=== PATIENT | male | born 1955 | race Caucasian/White ===

== ENCOUNTER 2018-01-20 22:43 | Inpatient (IN) ==
--- NOTE | 2018-01-21 01:27 | Internal Med History&Physical ---
<Jose Prasad - Last Filed: 01/21/18 02:15> Date of Encounter: 01/21/18 Time of Encounter: 01:27 Internal Medicine - H&P: HPI Chief complaint: Chest pain Admitted From: Hospital to Hospital Transfer Plans for Post Hospital Care: Home History of present illness: Mr. Gillespie is a 62 year old male with past medical history of hypertension presents to emergency room with complaint of chest pain 2 days. He states that he was using chainsaw cut down trees on Saturday when he began to experience gradual onset substernal chest tightness. The pain has been constant since onset and does not wax or wane. He also describes a dull pain without radiation. He states it is nonexertional. He was having some associated diaphoresis, nausea without vomiting during this time. He also complains complaint of chronic diarrhea almost immediately after eating however states is chronic. He states it feels vaguely familiar to when he was diagnosed with myocarditis approximately to 5 years ago. He denies the need for steroids at that time and states that it resolved on its own. He denies any symptoms of fevers, chills, shortness of breath. He does take a home aspirin. 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 He also admits to chronic anxiety with possible increased stressors over the past couple weeks with his son. Denies any history of panic attacks At [facility] emergency department, EKG shows sinus bradycardia with a rate in the high 50s. There were no ST changes appreciated. Troponin was mildly elevated at 0.10. He was started on heparin drip at that time. Chest x-ray was a normal limits. Remainder of labs were grossly unremarkable. At presentation to this facility, patient states pain is still present however not as bad. It was noted that he began to experience bilateral eye swelling while in transport. It is noted that he has an allergy to pork and the heparin was since stopped with improvement of symptoms. Past medical history as above Past surgical history, compression fractures Social history: Never smoker however does admit to chewing tobacco. Drinks approximately 2-3 alcohol drinks per night, denies drug use Family history significant for father with [place] and quadruple bypass at age 56, mother and grandmother with CAD Past cardiac workup: patient reports previous echo, doesn't remember results. LHC following myocarditis. No stents placed. All tests performed at [facility] - H&P: Meds Effexor 75 mg PO HS 01/21/18 [History] Lopressor 50 mg PO DAILY 01/21/18 [History] Lotrel 5-10 mg Capsule 5 - 10 mg PO DAILY 01/21/18 [History] Potassium 10 mg PO DAILY 01/21/18 [History] Spiriva PRN 01/21/18 [History] Vytorin 10-10 mg Tablet 10 mg PO DAILY 01/21/18 [History] 3 Allergy/AdvReac Type Severity Reaction Status Date / Time Sulfa (Sulfonamide Allergy See Verified 01/21/18 01:01 Antibiotics) Comments pork derived (porcine) AdvReac Intermediate [place] Verified 01/21/18 00:59 headache. All Systems PM: A 10-system review of systems was performed and is negative for pertinent findings except as documented above in the HPI. - Constitutional Constitutional: excessive sweating, no anorexia, no chills, no fatigue, no fever (s), no lethargy, no malaise, no weakness - Cardiovascular Cardiovascular ROS IM: chest pain, diaphoresis, no claudication, no dyspnea, no dyspnea on exertion, no edema, no lightheadedness, no orthopnea, no palpitations , no syncope - Respiratory Respiratory: no cough, no dyspnea, no hemoptysis, no dyspnea on exertion - Gastrointestinal Gastrointestinal: diarrhea, loose stools, nausea, no abdominal pain, no cramping , no dyspepsia, no dysphagia, no hematochezia, no melena, no vomiting - Integumentary Integumentary IM: no rash - Neurological Neurological ROS: no dizziness, no focal weakness, no numbness, no tingling, no weakness - Psychiatric Psychiatric: anxiety - Constitutional Vitals: Temp Pulse Resp BP Pulse Ox 97.5 F L 56 15 159/98 96 01/21/18 01:10 01/21/18 01:10 01/21/18 01:10 01/21/18 01:10 01/21/18 01:10 Exam: Gen.: Vitals noted. No acute distress. AAOx3, resting comfortably in bed HEENT: PERRL/EOMI, oropharynx clear, Normocephalic, atraumatic, moist mucous membranes Cardiac: RRR, no murmur, +S1/S2, mildly bradycardic. Nonreproducible chest pain Pulmonary: CTA bilaterally, no wheezes, rales or rhonchi, equal chest expansion Abdomen: soft, nontender, BS noted, no guarding MSK: ROM intact, no joint swelling noted Extremities: no BLE edema, nontender calf, no cyanosis or clubbing Neuro: A&Ox3, moves all extremities, no focal deficits Psych: Appropriate mood and behavior - Assessment and plan (1) NSTEMI (non-ST elevated myocardial infarction) Current Visit: Yes Status: Suspected Assessment and plan: - as above. More likely anxiety however positive trop. (2) Elevated troponin Current Visit: Yes Status: Acute Assessment and plan: Trop of 0.10 as above. Trending. (3) HTN (hypertension) Current Visit: Yes Status: Chronic Assessment and plan: Reports normally in 130s/80s - Mildly elevated at 159/98, possible due to pain vs anxiety - Will continue home meds and add hydralazine as needed. Qualifiers: Hypertension type: essential hypertension Qualified Code(s): I10 - Essential (primary) hypertension (4) DVT prophylaxis Current Visit: Yes Status: Acute Assessment and plan: was previously on heparin gtt, stopped. Consider Lovenox dose depending on troponin. (5) Chest pain Current Visit: Yes Status: Acute Assessment and plan: - Atypical chest pain (dull/substernal, non exertional, timeframe). Did not receive NTG - Possible etiologies include anxiety vs cardiac vs GERD - Troponin of 0.10 at [place], will trend. - Heparin gtt started in [place] but stopped due to pork allergy with swelling of eyes - CXR shows no acute findings. - Non reproducible on exam - LUCIANO score 2 (ASA use, troponin) Plan - Hold heparin gtt. Consider lovenox pending next troponin - Echo ordered and pending - Cardiology consulted, appreciate recommendations Qualifiers: Chest pain type: unspecified Qualified Code(s): R07.9 - Chest pain, unspecified - Time Spent With Patient Total time spent is greater than 50% in coordination of care (as documented) at patient's floor/unit and/or counseling patient: <Christian Batista - Last Filed: 01/21/18 02:50> Date of Encounter: 01/21/18 Internal Medicine - H&P: HPI History of present illness: Mr. Gillespie is a 62 year old male All Systems PM: A 10-system review of systems was performed and is negative for pertinent findings except as documented above in the HPI. - Constitutional Vitals: Temp Pulse Resp BP Pulse Ox 97.5 F L 56 15 159/98 96 01/21/18 01:10 01/21/18 01:10 01/21/18 01:10 01/21/18 01:10 01/21/18 01:10 - Attending Attestation The patient is a 62-year-old male with a history of poorly controlled hypertension who presents as a transfer from outside hospital where he presented with headache and chest tightness, found to have significantly elevated blood pressure and a mild elevation in serum troponin with T-wave inversion in 2 leads which were not present on EKG compared to from 5 years ago. He did not require nitroglycerin as his symptoms improved with blood pressure control however he states transferred here for further management based on the positive troponin. Started on heparin drip however upon arrival he was noted to have significant eye swelling and on history he reports allergy to pork. Physical exam he is lying in bed in no acute distress, unremarkable lung and cardiac auscultation findings, no pedal edema. Currently in sinus rhythm as evaluated on EKG and telemetry. BP is better controlled. We will hold off on using heparin for anticoagulation pending repeat troponin to assess if it is going up or down as it could have been secondary to hypertensive state. He received loading dose of aspirin. Given age and risk factors he will benefit from stress testing. For now will manage him as an NSTEMI presumed from myocardial demand. If there is a need for anticoagulation we will consider alternatives. Of note, he reports a prior history of myocarditis of unclear etiology. He has had a stress test done within the last 2 years which he says was negative and his last EF was in the 50s. Rest of plan per resident's note. - Assessment and plan (1) NSTEMI (non-ST elevated myocardial infarction) Current Visit: Yes Status: Suspected (2) Elevated troponin Current Visit: Yes Status: Acute (3) DVT prophylaxis Current Visit: Yes Status: Acute (4) HTN (hypertension) Current Visit: Yes Status: Chronic Qualifiers: Hypertension type: essential hypertension Qualified Code(s): I10 - Essential (primary) hypertension (5) Chest pain Current Visit: Yes Status: Acute Qualifiers: Chest pain type: unspecified Qualified Code(s): R07.9 - Chest pain, unspecified - Time Spent With Patient Total time spent is greater than 50% in coordination of care (as documented) at patient's floor/unit and/or counseling patient:
[2018-01-21] MEDS ORDERED: Naloxone 0.4 MG/ML INJ IVP PRN (01:59)
[2018-01-21] MEDS ORDERED: *HR* HYDROcodone/Acet 5/325 mg TABLET PO PRN (01:59)
[2018-01-21] MEDS ORDERED: Acetaminophen 325 MG TABLET PO PRN (01:59)
[2018-01-21] MEDS ORDERED: Nitroglycerin 0.4 MG TAB.SUBL SL PRN (02:01)
[2018-01-21 04:46] LABS: Basophils % 0.5 %; Eosinophils # 0.5 K/mcL (0.0-0.6); Hemoglobin 14.5 g/dL (12.9-16.9); Immature Granulocytes % 0.3 % (0-4); Lymphocytes # 2.4 K/mcL (0.6-4.6); Lymphocytes % 30.1 %; Mean Corpuscular HGB Conc 34.5 g/dL (31.6-35.5); Mean Corpuscular Hemoglobin 31.4 pg (28.0-33.3); Mean Corpuscular Volume 90.9 fL (83.0-100.0); Mean Platelet Volume 9.8 fL (9.4-12.4); Monocytes # 0.8 K/mcL (0.0-1.3); Neutrophils # 4.2 K/mcL (1.6-8.9); Platelet Count 191 K/mcL (140-400); Red Blood Count 4.62 M/mcL (4.19-5.50); Red Cell Distribution Width 12.3 % (11.5-14.5); Segmented Neutrophils % 53.1 %
[2018-01-21 04:50] LABS: Prothrombin Time 11.8 Seconds (9.4-12.1)
[2018-01-21 04:53] LABS: Activated Partial Thrombo Time 30.8 Seconds (26.0-36.0)
[2018-01-21 05:02] LABS: BUN/Creatinine Ratio 18 (6-26); Blood Urea Nitrogen 11 mg/dL (8-23); Calcium 8.4 mg/dL (8.6-10.3); Carbon Dioxide 28 mEq/L (23-29); Chloride 106 mEq/L (98-107); Cholesterol 159 mg/dL (< 200); Glucose 107 mg/dL (70-105); HDL Cholesterol 53 mg/dL (40-59); LDL Cholesterol,Calculated 87 mg/dL (0-99); Magnesium 2.1 mg/dL (1.6-2.6); Osmolality,Calculated 292 (280-300); Sodium 141 mEq/L (136-145); Triglycerides 97 mg/dL (< 150); eGFR For Non-African Americans > 60 (> 60)
[2018-01-21] MEDS: Metoprolol XL (24 HR) Succ 50 MG TAB.ER.24H PO SCH (09:43)
[2018-01-21] MEDS: Aspirin 81 MG TAB.CHEW PO SCH (09:43)
--- NOTE | 2018-01-21 10:23 | Cardiology Consult Note ---
<Hardeep Bernal - Last Filed: 01/21/18 10:14> Date of Encounter: 01/21/18 Time of Encounter: 10:15 Assessment and Plan (1) Elevated troponin Current Visit: Yes Status: Acute Troponin 0.10, 0.05. In setting of accelerated HTN--per pt highest BP 180s/ 110s. Constant chest pain x 3 days, atypical, no exerbating or alleviating factors. Suspect demand ischemia, nondiagnostic for ACS. No ischemic EKG changes. TTE to evaluate structure and function. Hx of myocarditis in 2010. LHC at that time 30% pLAD stenosis, otherwise luminal irregularities. Had allergic reaction to heparin--eye swelling. Will not anticoagulate since demand ischemia is suspected. Uses smokeless tobacco. Other risk factor for CAD progression includes HTN. Will discuss and review with Dr. Buchanan regarding stress test vs LHC. (2) HTN (hypertension) Current Visit: Yes Status: Chronic Currently better controlled. On home BB. Resume home Lotrel. Adjust antihypertensives as necessary. Qualifiers: Hypertension type: essential hypertension Qualified Code(s): I10 - Essential (primary) hypertension (3) Chest pain Current Visit: Yes Status: Acute Atypical, constant x 3 days with no exacerbating or alleviating factors. No EKG changes. However, given elevated troponin of 0.10, 0.05 will discuss stress test vs LHC. TTE to evaluate structure and function. Qualifiers: Chest pain type: unspecified Qualified Code(s): R07.9 - Chest pain, unspecified Discussion w patient/family: The assessment and plan as outlined above was discussed with the patient and/or family members who expressed understanding and agreement. All questions were answered. Thank you for involving us in the care of your patient. Please call with any questions. I will discuss all the above with Dr. Buchanan and make changes as necessary. History of Present Illness Consult date: 01/21/18 Requesting physician: Christian Batista Consult reason: elevated troponin Chief complaint: chest pain History of present illness: Mr. Gillespie is a 62 year old male with PMH of hypertension and myocarditis, NICMP reportedly since resolved, presents to ED with complaint of constant chest pain 3 days. He states that he was using a chainsaw cut down trees on Saturday when he began to experience substernal chest pain described as dull. No exacerbating or alleviating factors. Pain is somewhat similar to when he was diagnosed with myocarditis 5 years ago. At [facility] ER troponin was 0.10, at [facility] 0.05. Pt experienced bilateral eye swelling while in transport. He has an allergy to pork and the heparin was since stopped with improvement of symptoms. Admits to chewing tobacco, drinks approximately 2-3 alcohol drinks per night. Family history significant for father with [place] and quadruple bypass at age 56. BP has also been significantly elevated since Saturday. Per pt, highest reading 187/110. No EKG changes. Prior [facility] records reviewed. LHC 01/2011 prox LAD 30% stenosis, otherwise luminal irregularities. CMRI 01/2011 EF 50%, inferior-lateral delayed hyperenhancement (myocarditis), normal RV function, multiple wall motion abnormalities in areas of inflammation , apical thinning and dyskinesis. Past Med Surg Social Fam HX - Past Medical History Medical history: asthma, hypertension Additional medical history: Angina, kidney stones, - Past Surgical History Surgical History: orthopedic, other - Social History Smoking Status: Never smoker Smokeless Tobacco Status: Yes Alcohol use: occasionally Drug use: none Medications and Allergies Amlodipine Besylate/Benazepril [Lotrel 5-10 mg Capsule] 1 tab PO DAILY 01/21/18 [History] Budesonide/Formoterol 160/4.5 [Symbicort 160/4.5] 2 puff IH BIDR 01/21/18 [ History] Metoprolol Succinate [Toprol Xl] 50 mg PO DAILY 01/21/18 [History] Potassium Chloride [Klor-Con 10] 10 meq PO DAILY 01/21/18 [History] Venlafaxine XR (24 HR) [Effexor XR] 75 mg PO DAILY 01/21/18 [History] 3 Allergy/AdvReac Type Severity Reaction Status Date / Time Sulfa (Sulfonamide Allergy See Verified 01/21/18 01:01 Antibiotics) Comments pork derived (porcine) AdvReac Intermediate [place] Verified 01/21/18 00:59 headache. All Systems Review: The remainder of the systems were reviewed and are negative - Cardiovascular Cardiovascular: as per HPI, chest pain at rest, chest pain with exertion, diaphoresis Physical Examination Vital Signs, Last 4 Hours Temp Pulse Resp BP Pulse Ox 01/21/18 09:47 94 01/21/18 07:54 97.8 F 49 16 148/89 94 Vital Signs Temp Pulse Resp BP Pulse Ox 01/21/18 09:47 94 01/21/18 07:54 97.8 F 49 16 148/89 94 01/21/18 05:00 97.7 F 57 16 127/85 93 01/21/18 01:10 97.5 F L 56 15 159/98 96 Intake and Output 01/20/18 01/21/18 01/21/18 23:59 07:59 15:59 Intake Total 0 / 0 0 / 0 Output Total 700 / 700 Balance -700 / -700 0 / 0 Intake: Oral 0 / 0 0 / 0 Output: Urine 700 / 700 Other: Meal NPO Weight 91.1 kg Patient Weight 01/21/18 23:59 Weight 91.1 kg General: Conversant, No Apparent Distress HEENT: Atraumatic, Normocephaly, Mucus Membranes Moist Neck: No JVD, Normal carotid pulses Cardiac: Reg Rate and Rhythm, Normal S1 and S2, No Murmur Lungs: Normal Breath Sounds, No Wheeze, Rales, Rhonchi Neuro: Alert and responsive, No focal deficits noted Abdomen: Soft, Non-Tender Skin: No rashes noted on visualized skin Musculoskeletal: No Chest Wall Tenderness Extremities: No Clubbing, No Cyanosis, No Edema, Normal Pulses Results 01/21/18 04:11 01/21/18 04:11 Lab Results 01/21/18 01/21/18 01/21/18 04:11 04:11 04:11 WBC 7.9 Hgb 14.5 Hct 42.0 Plt Count 191 INR 1.0 APTT 30.8 Sodium 141 Potassium 3.0 L Chloride 106 Carbon Dioxide 28 BUN 11 Creatinine 0.61 L Glucose 107 H Calcium 8.4 L Magnesium 2.1 Troponin I 01/21/18 04:11 WBC Hgb Hct Plt Count INR APTT Sodium Potassium Chloride Carbon Dioxide BUN Creatinine Glucose Calcium Magnesium Troponin I 0.05 H* Short CBC 01/21/18 Range/Units 04:11 WBC 7.9 (4.3-11.1) K/mcL Hgb 14.5 (12.9-16.9) g/dL Hct 42.0 (37.5-50.1) % Plt Count 191 (140-400) K/mcL Neutrophils # 4.2 (1.6-8.9) K/mcL BMP 01/21/18 Range/Units 04:11 Sodium 141 (136-145) mEq/L Potassium 3.0 L (3.5-5.1) mEq/L Chloride 106 (98-107) mEq/L Carbon Dioxide 28 (23-29) mEq/L BUN 11 (8-23) mg/dL Creatinine 0.61 L (0.70-1.30) mg/dL Glucose 107 H (70-105) mg/dL Calcium 8.4 L (8.6-10.3) mg/dL Cardiac Enzymes 01/21/18 Range/Units 04:11 Troponin I 0.05 H* (< 0.04) ng/mL Active Medications Acetaminophen (Tylenol) 650 mg PO Q6HR PRN PRN Reason: Mild Pain/Fever Stop: 07/23/18 02:00 Hydrocodone Bitart/Acetaminophen ([place] 5-325 Mg) 1 tab PO Q6HR PRN PRN Reason: Moderate Pain Stop: 07/23/18 02:00 Aspirin (Aspirin) 81 mg PO DAILY RUBEN Stop: 07/23/18 09:01 Last Admin: 01/21/18 09:43 Dose: 81 mg Metoprolol Succinate (Toprol Xl) 50 mg PO DAILY RUBEN Stop: 07/23/18 09:01 Last Admin: 01/21/18 09:43 Dose: 50 mg Naloxone HCl (Narcan) 0.4 mg IVP Q2MIN PRN PRN Reason: SEE COMMENTS Stop: 07/23/18 02:00 Nitroglycerin (Nitroglycerin) 0.4 mg SL Q5MIN PRN PRN Reason: Chest Pain Stop: 07/23/18 02:02 - EKG Interpretation EKG results cardiology: personally reviewed (SR), other (12 hr tele AVG HR 53, SR, no significant pauses or arrhythmias noted) Consult Discharge Plan - Plan Referrals: Kj Garcia DO [Primary Care Provider] - <Sosa Buchanan - Last Filed: 01/21/18 12:08> Date of Encounter: 01/21/18 - Attending Attestation I examined this patient and my medical decision-making was reviewed with the VP & GENERAL COUNSEL. I agree with the documented findings, disposition and treatment plan as described. Mr. Gillespie presents with chest pain and elevated troponin in setting of accelerated hypertension. Reports atypical and typical chest pain symptoms for the past few months worse over the past few days. No concerning ECG abnormalities. We discussed patients options including LHC vs medical management and stress testing. The R/B/A of the procedure were discussed with the patient who expressed understanding. He elected to proceed with LHC. Denies upcoming elective procedures. Normal renal function, Hgb and Plt count. Possible reaction to heparin noted. Of note, also with history of myocarditis diagnosed a few years ago at [facility] and follows regularly with [facility] in [place]. LV systolic function normalized. Denies PND, orthopnea, LE edema or decreased exercise tolerance. Appears euvolemic on exam. Echo pending. Assessment and Plan Discussion w patient/family: The assessment and plan as outlined above was discussed with the patient and/or family members who expressed understanding and agreement. All questions were answered. Thank you for involving us in the care of your patient. Please call with any questions. History of Present Illness History of present illness: Mr. Gillespie is a 62 year old male All Systems Review: The remainder of the systems were reviewed and are negative Physical Examination Vital Signs, Last 4 Hours Temp Pulse Resp BP Pulse Ox 01/21/18 11:06 98.0 F 50 16 165/103 96 01/21/18 09:47 94 01/21/18 07:54 97.8 F 49 16 148/89 94 Results 01/21/18 04:11 01/21/18 04:11 Lab Results 01/21/18 01/21/18 01/21/18 04:11 04:11 04:11 WBC 7.9 Hgb 14.5 Hct 42.0 Plt Count 191 INR 1.0 APTT 30.8 Sodium 141 Potassium 3.0 L Chloride 106 Carbon Dioxide 28 BUN 11 Creatinine 0.61 L Glucose 107 H Calcium 8.4 L Magnesium 2.1 Troponin I 01/21/18 01/21/18 04:11 10:13 WBC Hgb Hct Plt Count INR APTT Sodium Potassium Chloride Carbon Dioxide BUN Creatinine Glucose Calcium Magnesium Troponin I 0.05 H* 0.04 H*
[2018-01-21] MEDS ORDERED: amLODIPine 5 MG TABLET PO SCH (10:30)
[2018-01-21] MEDS ORDERED: Heparin 1,000 UNITS/500 mL 500 ML ONE (14:54)
[2018-01-21] MEDS ORDERED: *HR* Heparin 10,000 UNIT/10 ML VIAL ONE (14:54)
[2018-01-21] MEDS ORDERED: Nitroglycerin 1,000 MCG/10 ML VIAL IV ONE ×2 (14:54→16:44)
[2018-01-21] MEDS ORDERED: ISOVUE-370 200 ML INFUS..BTL IV ONE ×3 (14:54→17:29)
[2018-01-21] MEDS ORDERED: 0.9 % Sodium Chloride 1,000 ML ONE ×3 (14:54→17:11)
--- NOTE | 2018-01-21 16:31 | Internal Med Progress Note ---
<Fatou Vaughan P - Last Filed: 01/21/18 16:42> Date of Encounter: 01/21/18 Time of Encounter: 11:00 - Assessment and plan (1) Chest pain Current Visit: Yes Status: Acute Assessment and plan: He has dull chest pain, he rates his chest natalee 2-3/10 Recent troponin 0.05 Cardiac consultation done Planned for cardiac cath. Qualifiers: Chest pain type: unspecified Qualified Code(s): R07.9 - Chest pain, unspecified (2) HTN (hypertension) Current Visit: Yes Status: Chronic Assessment and plan: His recent BP is 148/89 He is on Metoprolol We will monitor BP regularly Qualifiers: Hypertension type: essential hypertension Qualified Code(s): I10 - Essential (primary) hypertension (3) NSTEMI (non-ST elevated myocardial infarction) Current Visit: Yes Status: Suspected Assessment and plan: His ECG no sign of ischaemia / infarction Troponin level has dropped to 0.05 today He is on Heparin. cardiology work up continue - Subjective Interval history: Today is 1st day of admission. He is 62 year old male with known case of hypertension presents to emergency room with complaint of chest pain 2 days. He states that he was using chainsaw cut down trees on Saturday when he began to experience gradual onset substernal chest tightness. The pain was dull in nature, 4-5/10 , aggravated with exertion and relieved with rest, he denies any radiation to neck and arm. The pain has been constant since onset and does not wax or wane. He was having some associated diaphoresis, nausea without vomiting during this time. He also complains complaint of chronic diarrhea almost immediately after eating however states is chronic He states that he is alergic to Lettuce and has had diarrhoea after eating burger . He states that he has abnormal bowel movement most of days every months . He states it feels vaguely familiar to when he was diagnosed with viral myocarditis approximately to 5 years ago. He denies any symptoms of fevers, chills, shortness of breath. Now his chest pain is less 2-3/10 . His Troponin has came down to 0.05. EKG : normal finding . Xray : normal . His potassium is 3.0 He has been scheduled for Cardiac catheterization Today. - Constitutional Vitals: Temp Pulse Resp BP Pulse Ox 98.0 F 50 16 165/103 96 01/21/18 11:06 01/21/18 11:06 01/21/18 11:06 01/21/18 11:06 01/21/18 11:06 General appearance: Present: A&O X 3, no acute distress, answers questions appropriately - Head Head exam: Present: atraumatic, normal inspection, normocephalic - Neck Additional comments: Supple, No JVD - Respiratory Additional comments: Normal chest expansion both side, no added sound , normal air entry both side of chest - Cardiovascular Additional comments: Normal rate and rhythma, S1S2 normal, no murmur and added sound - Extremities Exam Additional comments: N calf swelling , no pedal edema - Neurological Exam Neurological exam: Present: alert, normal gait, oriented X3, reflexes normal Internal Medicine: Result - Labs CBC & Chem 7: 01/21/18 04:11 01/21/18 04:11 Labs: Short CBC 01/21/18 Range/Units 04:11 WBC 7.9 (4.3-11.1) K/mcL Hgb 14.5 (12.9-16.9) g/dL Hct 42.0 (37.5-50.1) % Plt Count 191 (140-400) K/mcL Neutrophils # 4.2 (1.6-8.9) K/mcL BMP 01/21/18 04:11 Sodium 141 Potassium 3.0 L Chloride 106 Carbon Dioxide 28 BUN 11 Creatinine 0.61 L Glucose 107 H Calcium 8.4 L Cardiac Enzymes 01/21/18 01/21/18 Range/Units 04:11 10:13 Troponin I 0.05 H* 0.04 H* (< 0.04) ng/mL - ABG Interpretation ABG results: PT/INR, D-dimer PT 11.8 Seconds (9.4-12.1) 01/21/18 04:11 - VTE Documentation of Mechanical Device: Intermittent pneumatic compression device Consult Discharge Plan - Plan Referrals: Kj Garcia DO [Primary Care Provider] - <Dami Carroll - Last Filed: 01/21/18 18:20> Date of Encounter: 01/21/18 - Constitutional Vitals: Temp Pulse Resp BP Pulse Ox 98.0 F 52 16 164/97 96 01/21/18 11:06 01/21/18 18:09 01/21/18 18:09 01/21/18 18:09 01/21/18 18:09 Internal Medicine: Result - Labs CBC & Chem 7: 01/21/18 04:11 01/21/18 04:11 Labs: Short CBC 01/21/18 Range/Units 04:11 WBC 7.9 (4.3-11.1) K/mcL Hgb 14.5 (12.9-16.9) g/dL Hct 42.0 (37.5-50.1) % Plt Count 191 (140-400) K/mcL Neutrophils # 4.2 (1.6-8.9) K/mcL BMP 01/21/18 04:11 Sodium 141 Potassium 3.0 L Chloride 106 Carbon Dioxide 28 BUN 11 Creatinine 0.61 L Glucose 107 H Calcium 8.4 L Cardiac Enzymes 01/21/18 01/21/18 Range/Units 04:11 10:13 Troponin I 0.05 H* 0.04 H* (< 0.04) ng/mL - ABG Interpretation ABG results: PT/INR, D-dimer PT 11.8 Seconds (9.4-12.1) 01/21/18 04:11 - Attending Attestation I examined this patient and my medical decision-making was reviewed with the Resident Physician on 01/21/18. I agree with the documented findings, disposition and treatment plan as described except to the extent set forth below. Mr Gillespie was admitted earlier today with chest pain. He was seen by cardiology and is to have [facility] today. Agree with plan as per H&P and above note.
[2018-01-21] MEDS ORDERED: 0.9 % Sodium Chloride 500 ML ONE (16:41)
--- NOTE | 2018-01-21 16:54 | Pre-Sedation Evaluation ---
Pre-sedation evaluation - Pre-sedation checklist Date of procedure: 01/21/18 Procedure: [facility] Recent Vitals: Last Vital Signs Temp 98.0 F 01/21/18 11:06 Pulse 50 01/21/18 11:06 Resp 16 01/21/18 11:06 BP 165/103 01/21/18 11:06 Pulse Ox 96 01/21/18 11:06 H&P (including ROS) documented in medical record: Yes Previous reaction to sedatives/anesthetics: No Dietary Status: NPO after Midnight Airway Assessment: Patient can open mouth completely, TMJ function normal, Micrognathia (under-bite, receding chin) absent, Neck with adequate range of motion Dentition: No loose teeth or bridges Possible difficult airway: No ASA Classification *see protocol: CLASS II-Mild systemic disease Plan of Care: Pt appropriate candidate for procedure/moderate/conscious sedation , Risks/benefits of procedure/sedation discussed w/ patient/family Cardiac Registry (Cardio Only) - Functional Capacity Functional Capacity: < 4 METS - Clincal Frailty Scale Clinical Frailty Scale: Managing Well
[2018-01-21] MEDS ORDERED: *HR* FentaNYL (PF) 100 MCG/2 ML VIAL ONE (17:10)
[2018-01-21] MEDS ORDERED: *HR* Midazolam HCl 2 MG/2 ML VIAL ONE (17:10)
[2018-01-21] MEDS ORDERED: *HR* Bivalirudin 250 MG VIAL IVC ONE (17:29)
--- NOTE | 2018-01-21 17:58 | Invasive Diagnostic Lab Proc ---
Name: Jose Alberto Gillespie Date of Study: 01/21/2018 Date: 1955 Ht: 70.1in Medical Record#: [id number] Age: 62 Wt: 200.62lb Gender: Male BSA: 2.09 Order #: [id number] BMI: 28.72 Physicians Procedure Physician: Elicia Luna MD, [facility] Referring MD: Referring MD: Staff Name Position Time In Adriana Baxter RT Scrub 05:04 PM Fariba Sommer RN Monitor 05:04 PM Jennifer Packer RT (R) Monitor 05:04 PM Indications Indication Unstable Angina Procedures Performed Procedure L HRT ARTERY/VENTRICLE ANGIO Pre-Procedure Checklist Informed consent is complete signed and on chart. H&P is on chart. ID band is on and ID verified with patient. Patient NPO for procedure The procedure was described for the patient and questions were answered. ECG is on chart. Plan of Care Patient will tolerate the procedure without complications. Adequate level of comfort will be maintained. Hemodynamics will remain stable Patient will recover from procedure without complications. Respiratory function will be maintained. Cardiac rhythm will remain stable. Patient temperature will be maintained. Patient and/or family have verbalized understanding of the procedure. Patient Education Chief Complaint/Reason for Test: Cardiac Cath Developmental Category: Adult (18-64 years) Developmentally Appropriate for Age: Yes Learning Barriers: None Education Needs: Procedure Education Method: Verbal Information Taught: Cardiac Cath Educational Evaluation: Able to repeat information Intravenous Access Time IV Size Location DC'd Fluid/Drip Rate Units RN 0.9NaCl ml/hr Allergies Sulfa (Sulfonamide Antibiotics) pork derived (porcine) Vital Signs Time BP (mmHg) HR (bpm) O2 Sat. RR (bpm) LOC 05:07 PM / % 5 = Fully awake and oriented or at pre-proc level 05:14 PM 195 / 103 58 98 % 8 05:18 PM 169 / 101 58 99 % 21 05:23 PM 166 / 95 50 98 % 20 05:28 PM 173 / 101 50 97 % 44 05:33 PM 170 / 92 57 97 % 19 05:38 PM 168 / 99 55 98 % 20 Procedural Medications Time Medication Dose Units Method Given By 05:20 PM Oxygen 2 L/min nasal cannula Carina Barber RN 05:16 PM Versed 2 mg Intravenous Carina Barber RN 05:15 PM Fentanyl 50 mcg Intravenous Carina Barber RN 05:25 PM Benadryl 25 mg Intravenous Carina Barber RN 05:26 PM Lidocaine 2% 18 ml Subcutaneous Elicia Luna MD, [facility] 05:27 PM Angiomax 0.75mg/kg bolus: 13.5 ml Intravenous Carina Barber RN ASA Classification: CLASS II- Mild systemic disease (i.e. well-controlled diabetes, hypertension, asthma, cigarette smoking) Rajeev Score Preprocedure Postprocedure Activity 2- Moves 4 extremities sustained head lift Activity 2- Moves 4 extremities sustained head lift Circulation 2- SBP +/= 20 points of pre-anesthetic level Circulation 2- SBP +/= 20 points of pre-anesthetic level Consciousness 2- Awake and alert oriented x 3 Consciousness 2- Awake and alert oriented x 3 O2 Saturation 2- Able to maintain O2 satruation of 92% on room air O2 Saturation 2- Able to maintain O2 satruation of 92% on room air Respiratory 2- Able to deep breathe and cough well Respiratory 2- Able to deep breathe and cough well Total Score 10 Total Score 10 Contrast Agent: Isovue Diagnostic Contrast: 62 ml Total Contrast: 62 ml Fluoro Dose: 2683 mGy Procedure Log Time Note Enter By 02:57 PM CathStat 05:04 PM Adriana Baxter RT Position: Scrub Time in: 17:04 05:04 PM Fariba Sommer RN Position: Cnc Router Operator Time in: 17:04 05:04 PM Jennifer Packer RT (R) Position: Monitor Time in: 17:04 05:05 PM Pt arrived to crown and bridge dental lab technician 2 at 17:05 05:05 PM Patient charges- Angio tray pack, Navilyst 3mm J, Pulse Oximetry and ACIST tubing and transducer 05:05 PM IV Supplies used: J loop Angio Cath. 05:05 PM Case Delayed No, inpatient 05:06 PM ASA Class CLASS II- Mild systemic disease (i.e. well-controlled diabetes, hypertension, asthma, cigarette smoking) 05:06 PM Physician arrived 17:06 05:06 PM Case Start 05:07 PM Meet and greet completed :07 PM Sign in performed according to hospital policy. Procedure start 17:07 PM Time: 17:07 Patient comfortable and pain free: Yes PM Time: 17:07LOC: 5 = Fully awake and oriented or at pre-proc level dsp 05:12 PM Vitals capture started with the following parameters, Patient=Adult, Interval=5 min, Initial Yzhdtjsi=601 mmHg, Deflation Rate=5 mmHg, Cuff placed on Right Arm 05:14 PM HR=58 bpm, LDOC=809/103 mmhg, SpO2=98.0 %, Resp=8 B/min, Comment=Sinus Simone 05:18 PM HR=58 bpm, MLVC=248/101 mmhg, SpO2=99.0 %, Resp=21 B/min, EtCO2=38 mmHg, Comment=Sinus Simone 05:20 PM Hair removed from procedure site in procedure lab using clippers. Bilateral groin prepped with Chloraprep by Jennifer Packer ([place]), then patient was draped. Skin intact. PM Time: 17:20 Oxygen on at 2 L/min per nasal cannula by Carina Barber RN PM Time: 17:16 Versed 2 mg Intravenous Given by Carina Barber RN PM Time: 17:15 Fentanyl 50 mcg Intravenous Given by Carina Barber RN : PM Clinical Presentation: Unstable angina Pressure channel 1 zeroed. 05:23 PM HR=50 bpm, OBLB=800/95 mmhg, SpO2=98.0 %, Resp=20 B/min, EtCO2=43 mmHg, Comment=Sinus Simone : PM Time out performed according to hospital policy PM Time: 17:25 Benadryl 25 mg Intravenous Given by Carina Barber RN PM Time: 17:26 18 ml Lidocaine 2% to right groin Subcutaneous Given by Elicia Luna MD, [facility] PM Access obtained by percutaneous puncture. 5Fr 10cm Terumo Bayard sheath placed in right Femoral artery. [id number] PM Time: 17:27 Angiomax 0.75mg/kg bolus: 13.5 ml Intravenous Given by Carina Barber RN Bejarano pump 05: PM 5Fr FL 4 catheter inserted over the wire [facility] : PM 0.035 145cm Navilyst 3mmJ wire [id number] 05: PM HR=50 bpm, MHAZ=378/101 mmhg, SpO2=97.0 %, Resp=44 B/min, EtCO2=40 mmHg, Comment=Sinus Simone 05:28 PM LCA angiography performed in multiple views. : PM Catheter removed : PM 5Fr FR 4 catheter inserted over the wire [facility] : PM RCA angiography performed in multiple views. : PM Catheter removed : PM 5Fr Pigtail catheter inserted over the wire [facility] :32 PM Catheter selectively placed in left ventricle dsp 05:32 PM Bolus angiogram of left Ventricle complete: 8 ml/sec for a total of 24 mls PM Pressure channel 1 zeroed. 05:33 PM Recorded Pressure: LV, HR=62, Condition=Condition 1 (Left Ventricle) LV 127/24/7 05:33 PM HR=57 bpm, PCWG=767/92 mmhg, SpO2=97.0 %, Resp=19 B/min, Comment=Sinus Simone 05:33 PM Recorded Pressure: LV, Ao, HR=56, Condition=Condition 1 (Left Ventricle) LV 125/5/14, (Aorta) Ao 139/83/110 05:33 PM Recorded Pressure: Ao, HR=55, Condition=Condition 1 (Aorta) Ao 137/58/103 05:34 PM Catheter removed 05:35 PM Recorded Pressure: Ao, HR=56, Condition=Condition 1 (Aorta) Ao 163/70/108 05:36 PM Coronary Dominance: Co-dominant 05:37 PM Procedure completed at 17:37 01/21/2018:37 PM Did you address LUCIANO flow and Dominance? Yes 05:38 PM Sign out completed: Radiation Dose 223.21 mGy, 2683.11 cGy/cm2 Fluoro Time: 1.2 Isovue 370 - 200ml contrast 62 ml given by Elicia Luna MD, FACC. Complications: NoneCardiac Rehab Consult needed: NoConfirmed administered medications: Yes dspell 05:38 PM Isovue 370 - 200ml,1 Bottle(s) used. dspell 05:38 PM HR=55 bpm, TULB=775/99 mmhg, SpO2=98.0 %, Resp=20 B/min, EtCO2=41 mmHg, Comment=Sinus Simone 05:38 PM Arterial sheath pulled, Mynx closure device used and was Successful [id number] S/N. dspell 05:38 PM Estimated Blood Loss: minimal dspell 05:38 PM Post ECG Sinus Bradycardia dspell 05:39 PM Post Blood Pressure 168/99 dspell 05:39 PM Information taught Cardiac Cath and Mynx dspell 05:39 PM Education needs Procedure, Plan of Care, and Responsibilities of Patient in Care dspell 05:39 PM Learning barriers :None dspell 05:39 PM Education Methods Verbal dspell 05:39 PM Education evaluation Able to repeat information dspell 05:39 PM Site status No bleeding/hematoma - Rt Groin as reported by Adriana Baxter RT at 17:39 dspell 05:39 PM Opsite applied dspellman 05:45 PM Report given to Nancy ASHTON Pt taken to 2NE Room #25. 17:39 dspellman 05:45 PM Delay to floor No dspellman 05:45 PM Family placed in consult room. dspellman 05:45 PM Complications: None dspellman 05:47 PM Lesion found in Proximal LAD. Pre Stenosis: 40 Pre LUCIANO Flow: 3: Complete and Brisk Flow/Perfusion dspellman 05:47 PM Lesion found in Mid LAD. Pre Stenosis: 25 Pre LUCIANO Flow: 3: Complete and Brisk Flow/Perfusion dspellman 05:47 PM Lesion found in Proximal Circumflex. Pre Stenosis: 30 Pre LUCIANO Flow: 3: Complete and Brisk Flow/Perfusion dspellman 05:48 PM Lesion found in Proximal RCA. Pre Stenosis: 30 Pre LUCIANO Flow: 3: Complete and Brisk Flow/Perfusion dspellman 05:48 PM Lesion found in Mid RCA. Pre Stenosis: Pre LUCIANO Flow: 3: Complete and Brisk Flow/Perfusion dspellman Complications Complication None None Hemodynamics Pressures Site Systolic/A Wave Diastolic/V Wave Mean LV 127 24 7 LV 125 5 14 AO 139 83 110 AO 137 58 103 AO 163 70 108 Post Procedure Information Blood Pressure: 168/99 mmHg Rhythm: Sinus Bradycardia Post procedural instructions were given Closure Device Time Device Success/Fail 01/21/2018 5:45:00 PM MynxGrip Successful Site Checks Time Location Status Staff Sheath In? Note 05:39 PM Rt Groin No bleeding/hematoma Adriana Baxter RT No Pulses Time Site Pre-Procedure Post-Procedure Note Bilateral DP & PT 2+ Bilateral radial 2+ Updated by Jennifer Packer RT (R) on 01/21/2018 5:51:55 PM Jennifer Packer RT electronically signed on 01/21/2018 5:52:51 PM with status of Final
[2018-01-21] MEDS ORDERED: Venlafaxine XR (24 HR) 75 MG CAP.ER.24H PO SCH (21:30)
[2018-01-22 07:26] VITALS: BP 139/92
[2018-01-22] MEDS ORDERED: amLODIPine 5 MG TABLET PO SCH (09:00)
--- NOTE | 2018-01-22 09:15 | Discharge Summary ---
- NOTES TO OUTPATIENT PROVIDER Notes to Outpatient Provider: Pt admitted with chest pain and elevated troponin. Had markedly elevated BP as well. Had LHC with nonobstructive disease. Meds adjusted for BP. His potassium was low and replaced. ? if he has hyperaldosteronism (HTN and K low despite supplement and TARA I). Labs not ordered at this time. I told him to keep track of his BP and bring record in for review. Date of Encounter: 01/22/18 Time of Encounter: 09:13 - Discharge Diagnosis (1) NSTEMI (non-ST elevated myocardial infarction) Priority: Primary Status: Ruled-out Assessment and Plan: LHC with nonobstructive disease. (2) HTN (hypertension) Priority: Secondary Status: Chronic Assessment and Plan: BP has been more elevated than at baseline. K was low. Meds adjusted. Advised monitoring at home and taking to PCP. Qualifiers: Hypertension type: essential hypertension Qualified Code(s): I10 - Essential (primary) hypertension (3) Chest pain Priority: Secondary Status: Ruled-out Assessment and Plan: - S/P LHC with nonobstructive disease. Qualifiers: Chest pain type: chest pain due to myocardial ischemia Ischemic chest pain type: unstable angina pectoris Qualified Code(s): I20.0 - Unstable angina (4) Chewing tobacco nicotine dependence Priority: Secondary Status: Chronic Assessment and Plan: Cessation counselling. Qualifiers: Substance use status: uncomplicated Qualified Code(s): F17.220 - Nicotine dependence, chewing tobacco, uncomplicated (5) Hypokalemia Priority: Secondary Status: Resolved Assessment and Plan: Replaced and resolved. Hospital course: Mr. Gillespie is a 62 year old male with hx of HTN and myocarditis presented to ED with complaints of chest pain. Pt had been working in the yard and felt he got overheated. He developed substernal chest discomfort which was worse with exertion. He went to [facility] ED and troponin was elevated. He was transferred here for further work up. Mr Gillespie was admitted to [facility]. He had serial troponins which were elevated. There were no EKG and heparin was held due to allergy to pork. He was evaluated by cardiology and underwent LHC which showed nonobstructive disease. His BP was elevated and meds were adjusted. His potassium was low and this was replaced. Today he is afebrile. He feels well and current BP is 137/77. He is ready for discharge home and outpatient follow up. Discharge discussed with: patient, nurse Time spent discussing smoking cessation with patient: 3 to 10 minutes - Time Spent with Patient Total time spent providing and/or coordinating discharge services: 38 min - Discharge Medications Prescriptions: Amlodipine Besylate/Benazepril [Lotrel 5-10 mg Capsule] 2 tab PO DAILY #60 capsule Home Medications: Budesonide/Formoterol 160/4.5 [Symbicort 160/4.5] 2 puff IH BIDR 01/21/18 [ History] Metoprolol Succinate [Toprol Xl] 50 mg PO DAILY 01/21/18 [History] Venlafaxine XR (24 HR) [Effexor XR] 75 mg PO DAILY 01/21/18 [History] Amlodipine Besylate/Benazepril [Lotrel 5-10 mg Capsule] 2 tab PO DAILY #60 capsule 01/22/18 [Rx] Aspirin 81 mg PO DAILY tab.chew 01/22/18 [Rx] Ezetimibe/Simvastatin [Vytorin 10-20 mg Tablet] 1 each PO DAILY 01/22/18 [ History] Potassium Chloride [K-Tab ER] 10 meq PO DAILY 01/22/18 [History] Allergies/Adverse Reactions: 3 Allergy/AdvReac Type Severity Reaction Status Date / Time pork derived (porcine) AdvReac Intermediate [facility] Verified 01/21/18 00:59 headache. Sulfa (Sulfonamide AdvReac See Verified 01/21/18 12:41 Antibiotics) Comments Date of admission: 01/21/18 01:54 Primary care physician: Kj Garcia DO Consults: 01/21/18 02:02 Consult to Cardiology [CONS] Routine Comment: Consulting Provider: Cardiology Delfina Reason for Consult: chest pain, trop 0.10 Call Completed: No Discharging clinician: Dami Carroll Anticipated date of discharge: 01/22/18 - Constitutional Vitals: Temp Pulse Resp BP Pulse Ox 97.8 F 51 15 139/92 92 01/22/18 06:55 01/22/18 07:25 01/22/18 07:25 01/22/18 07:25 01/22/18 07:25 General appearance: Present: A&O X 3, answers questions appropriately - Head Head exam: Present: normocephalic - Eye Eye exam: Present: EOMI, conjuntiva pink - ENT ENT exam: Present: mucous membranes moist - Respiratory Respiratory exam: Present: CTAB. Absent: rales, rhonchi, wheezes - Cardiovascular Cardiovascular exam: Present: RRR. Absent: tachycardia - GI/Abdominal GI/Abdominal exam: Present: normal bowel sounds, soft. Absent: tenderness - Extremities Exam Extremities exam: Present: warm. Absent: tenderness - Neurological Exam Neurological exam: Present: alert, oriented X3, no focal deficits - Skin Skin exam: Present: dry, warm. Absent: rash - Patient Status Disposition: Home, Self-Care Condition: Good Functional capacity at discharge: independent ambulation Overall status at discharge: patient is progressing back to baseline - Discharge Instructions Follow Up With: Kj Garcia DO [Primary Care Provider] - - Diet and Activity Activity: increase activity as tolerated Diet: advance to your usual diet - VTE Documentation of Mechanical Device: Intermittent pneumatic compression device
[2018-01-22] MEDS: Aspirin 81 MG TAB.CHEW PO SCH (09:24)
[2018-01-22] MEDS: Metoprolol XL (24 HR) Succ 50 MG TAB.ER.24H PO SCH (09:24)
[2018-01-22 10:06] LABS: BUN/Creatinine Ratio 15 (6-26); Blood Urea Nitrogen 14 mg/dL (8-23); Calcium 8.5 mg/dL (8.6-10.3); Carbon Dioxide 25 mEq/L (23-29); Chloride 106 mEq/L (98-107); Glucose 221 mg/dL (70-105); Osmolality,Calculated 295 (280-300); Potassium 3.2 mEq/L (3.5-5.1); Sodium 139 mEq/L (136-145); eGFR For Non-African Americans > 60 (> 60)
--- NOTE | 2018-01-22 10:33 | Cardiology Progress Note ---
Date of Encounter: 01/22/18 Time of Encounter: 10:31 Assessment and Plan (1) Elevated troponin Current Visit: Yes Status: Acute Troponin 0.10, 0.05. In setting of accelerated HTN--per pt highest BP 180s/ 110s. Constant chest pain x 3 days, atypical, no exerbating or alleviating factors. Suspect demand ischemia, nondiagnostic for ACS. No ischemic EKG changes. TTE EF preserved, mild valvular dysfunction. Hx of myocarditis in 2010. LHC at that time 30% pLAD stenosis, otherwise luminal irregularities. Had allergic reaction to heparin--eye swelling. Will not anticoagulate since demand ischemia is suspected. Uses smokeless tobacco. Other risk factor for CAD progression includes HTN. LHC yesterday nonobstructive CAD. Right femoral site healing well. No bleeding, hematoma or ecchymosis. Cardiology signing off. Reconsult PRN. [facility] records reviewed. Follow-up in 2013 stated if recurrent CP, repeat cardiac MRI. Will coordinate referral. Follow-up as outpt with [facility] in 1-2 weeks. (2) HTN (hypertension) Current Visit: Yes Status: Chronic Currently better controlled. On home BB. Was on Lotrel at home med, not on formulary. Norvasc increased to 10mg. Lisinopril 5mg added. Adjust antihypertensives as necessary. Qualifiers: Hypertension type: essential hypertension Qualified Code(s): I10 - Essential (primary) hypertension (3) Chest pain Current Visit: Yes Status: Ruled-out Atypical, constant x 3 days with no exacerbating or alleviating factors. No EKG changes. As above LHC nonobstructive CAD and TTE EF preserved. Outpt [facility] follow-up given hx myocarditis and prior recommendations of repeating [facility]RI if recurrent CP. Currently CP free. Qualifiers: Chest pain type: chest pain due to myocardial ischemia Ischemic chest pain type: unstable angina pectoris Qualified Code(s): I20.0 - Unstable angina (4) CAD (coronary artery disease) Current Visit: Yes Status: Acute Nonobstructive CAD on LHC. Recommend ASA, Statin, BB. Pt is on Vytorin at home. Qualifiers: Coronary Disease-Associated Artery/Lesion type: samish artery [place] vs. transplanted heart: samish heart Associated angina: angina presence unspecified Qualified Code(s): I25.10 - Atherosclerotic heart disease of samish coronary artery without angina pectoris Discussion w patient/family: The assessment and plan as outlined above was discussed with the patient and/or family members who expressed understanding and agreement. All questions were answered. Thank you for involving us in the care of your patient. Please call with any questions. I will discuss all the above with Dr. Buchanan and make changes as necessary. Subjective Principal diagnosis: Elevated troponin Interval history: S/P LHC yesterday, nonobstructive CAD. Pt is chest pain free today. No acute complaints. TTE resulted--EF is preserved, mild valvular dysfunction. Objective Vital Signs, Last 4 Hours Temp Pulse Resp BP Pulse Ox 01/22/18 07:25 51 15 139/92 92 01/22/18 06:55 97.8 F 54 14 120/79 96 Vital Signs Temp Pulse Resp BP Pulse Ox 01/22/18 07:25 51 15 139/92 92 01/22/18 06:55 97.8 F 54 14 120/79 96 01/22/18 00:00 64 14 134/83 96 01/21/18 23:27 54 134/83 01/21/18 21:08 53 145/85 01/21/18 19:00 97.5 F L 54 15 145/85 94 01/21/18 18:41 54 160/94 96 01/21/18 18:09 52 16 164/97 96 01/21/18 11:06 98.0 F 50 16 165/103 96 Intake and Output 01/21/18 01/22/18 01/22/18 23:59 07:59 15:59 Intake Total 100 / 100 240 / 240 Output Total 800 / 800 1150 / 1150 Balance -700 / -700 -910 / -910 Intake: Oral 100 / 100 240 / 240 Output: Urine 800 / 800 1150 / 1150 Other: Weight 89.5 kg Patient Weight 01/22/18 23:59 Weight 89.5 kg General: Conversant, No Apparent Distress HEENT: Atraumatic, Normocephaly, Mucus Membranes Moist Neck: No JVD, Normal carotid pulses Cardiac: Reg Rate and Rhythm, Normal S1 and S2, No Murmur Lungs: Normal Breath Sounds, No Wheeze, Rales, Rhonchi Neuro: Alert and responsive, No focal deficits noted Abdomen: Soft, Non-Tender Skin: Other (right femoral access site healing well. No bleeding, hematoma or ecchymosis noted.) Musculoskeletal: No Chest Wall Tenderness Extremities: No Clubbing, No Cyanosis, No Edema, Normal Pulses Results 01/21/18 04:11 01/22/18 09:23 Lab Results 01/21/18 01/22/18 10:13 09:23 Sodium 139 Potassium 3.2 L Chloride 106 Carbon Dioxide 25 BUN 14 Creatinine 0.96 Glucose 221 H Calcium 8.5 L Troponin I 0.04 H* BMP 01/22/18 Range/Units 09:23 Sodium 139 (136-145) mEq/L Potassium 3.2 L (3.5-5.1) mEq/L Chloride 106 (98-107) mEq/L Carbon Dioxide 25 (23-29) mEq/L BUN 14 (8-23) mg/dL Creatinine 0.96 (0.70-1.30) mg/dL Glucose 221 H (70-105) mg/dL Calcium 8.5 L (8.6-10.3) mg/dL Cardiac Enzymes 01/21/18 Range/Units 10:13 Troponin I 0.04 H* (< 0.04) ng/mL Impressions Echocardiogram 01/21/18 02:03 Impressions: LVEF 60-65%. Normal LV chamber size, wall thickness and function. Mild left ventricular diastolic dysfunction. Normal right ventricular structure and function. Mild aortic regurgitation. Normal mitral valve structure. There is mild chordal systolic anterior motion. Mild mitral regurgitation, which is posteriorly directed and possibly underestimated. No evidence of pulmonary hypertension. Left Ventricular Wall Motion: Rest Echo Findings All wall segments showed normal motion. Findings: Study Quality * Technically adequate exam. ECG Findings * Normal sinus rhythm. Left Ventricle * LVEF 60-65%. * Normal LV chamber size, wall thickness and function. * Mild left ventricular diastolic dysfunction. Right Ventricle * Normal right ventricular structure and function. Left Atrium * Moderately dilated left atrium. Right Atrium * Normal right atrial size. Aortic Valve * Trileaflet aortic valve. * Mildly sclerotic aortic valve leaflets. * Mild aortic regurgitation. * No aortic stenosis. Mitral Valve * Normal mitral valve structure. There is mild chordal systolic anterior motion. * Mild mitral regurgitation, which is posteriorly directed and possibly underestimated. * No mitral stenosis. Tricuspid Valve * Normal tricuspid valve structure and function. * Trace tricuspid regurgitation. * No evidence of pulmonary hypertension. Pulmonic Valve * Normal pulmonic valve structure and function. * Trace pulmonic regurgitation. Aorta * Normally sized aortic root. Pericardium * The pericardium appears normal. IVC * Normal IVC dimensions and inspiratory collapse. Pulmonary Artery * Normal visualized portions of the main pulmonary artery. Active Medications Acetaminophen (Tylenol) 650 mg PO Q6HR PRN PRN Reason: Mild Pain/Fever Stop: 07/23/18 02:00 Hydrocodone Bitart/Acetaminophen ([place] 5-325 Mg) 1 tab PO Q6HR PRN PRN Reason: Moderate Pain Stop: 07/23/18 02:00 Amlodipine Besylate (Norvasc) 10 mg PO DAILY [facility] PRN Reason: Protocol Stop: 07/24/18 09:01 Last Admin: 01/22/18 09:25 Dose: 10 mg Aspirin (Aspirin) 81 mg PO DAILY [facility] Stop: 07/23/18 09:01 Last Admin: 01/22/18 09:24 Dose: 81 mg Lisinopril (Zestril) 5 mg PO DAILY [facility] PRN Reason: Protocol Stop: 07/23/18 18:16 Last Admin: 01/22/18 09:25 Dose: 5 mg Metoprolol Succinate (Toprol Xl) 50 mg PO DAILY [facility] Stop: 07/23/18 09:01 Last Admin: 01/22/18 09:24 Dose: 50 mg Naloxone HCl (Narcan) 0.4 mg IVP Q2MIN PRN PRN Reason: SEE COMMENTS Stop: 07/23/18 02:00 Nitroglycerin (Nitroglycerin) 0.4 mg SL Q5MIN PRN PRN Reason: Chest Pain Stop: 07/23/18 02:02 Venlafaxine HCl (Effexor Xr) 75 mg PO HS [facility] Stop: 07/24/18 21:01 - Imaging and Cardiology Echo: report reviewed Cardiac cath: report reviewed - EKG Interpretation EKG results cardiology: other (12 hr tele AVG HR 57, SR) - VTE Documentation of Mechanical Device: Intermittent pneumatic compression device Consult Discharge Plan - Plan Additional Instructions: RISK FACTORS: STOP SMOKING: If you smoke, STOP. Smoking or tobacco use significantly increases your risk of heart disease because nicotine causes the arteries to narrow or constrict. It also causes fats to stick to the artery. Your chances of having a heart attack are greatly increased if you continue to smoke. For more information, call the education line for smoking cessation [id number] EAT A LOW FAT/CHOLESTEROL/SODIUM DIET: This diet may help reduce your chances of having a heart attack. LIFTING: Avoid lifting anything more than 10 pounds for 5-7 days Prior to straining, laughing, sneezing and/or coughing, apply manual pressure directly over insertion site. ACTIVITY: You may walk or climb stairs as tolerated You can resume sexual activity as tolerated In general, you are encouraged to engage in a minimum of 30 minutes or more of moderate intensity physical activity, such as brisk walking, daily or at least 3 -4 times weekly BATHING Do not submerge the site into water (bath tub, hot tub, swimming pool) for 1 week. This can be a source for infection into the blood stream. You may shower after 24 hours SITE CARE: After 24 hours, you may remove the dressing and leave the site open to air. Keep the site clean and dry. Clean gently and pat dry. You can expect bruising and tenderness that gradually resolve within a week or two. Return to work as instructed per your physician Resume driving as instructed per physician Keep all scheduled follow up appointments Resume medications as instructed IMPORTANT: If prescribed a Platelet Aggregation Inhibitor such as, Plavix, Brilinta or Effient: Duration of therapy is minimum one year These medications are often used in combination with Aspirin in prevention of future heart attacks Never discontinue unless consult with your Audio Engineer STROKE (CVA) Risk factors for a stroke are: Age, cigarette smoking, diabetes, excessive alcohol consumption, family history, high blood pressure, overweight, physical inactivity, prior stroke, heart attack, diagnosis of carotid artery stenosis or other artery disease. Warning signs: Sudden numbness or weakness of the face, arm or leg; especially on one side of the body, sudden confusion, trouble speaking or understanding, sudden trouble seeing in one or both eyes, sudden trouble walking, dizziness, loss of balance or coordination, sudden severe headache with no cause. Call 911 or go to the Emergency Room. CONGESTIVE HEART FAILURE: If you have been diagnosed with Congestive Heart Failure (CHF) and your symptoms return, make an appointment with your physician Weigh yourself daily. Notify your physician if you have a weight gain of two or more pounds in one day or five or more pounds in one week. If you experience any difficulty breathing, please call 911 BLEEDING: Although the risk of bleeding is minimal, it can happen. If you have any bleeding from the site, apply firm pressure above the puncture site for 10-15 minutes. If the bleeding does not stop, continue manual pressure and call 911 Contact your physician if: You develop a fever greater than 101 degrees Fahrenheit Your site becomes reddened or has any drainage You have an increase in pain or burning at the site or if a large knot forms at the site. If you experience chest pain, shortness of breath, dizziness, or extreme tiredness, stop the activity and rest. Please notify your physicians office if you experience any of these symptoms and they are not relieved by rest please call 911! Referrals: Kj Garcia DO [Primary Care Provider] - Prescriptions: Amlodipine Besylate/Benazepril [Lotrel 5-10 mg Capsule] 2 tab PO DAILY #60 capsule
[2018-01-22] MEDS ORDERED: Venlafaxine XR (24 HR) 75 MG CAP.ER.24H PO SCH (21:00)
== END 2018-01-22 11:28 | disposition home or self-care (01) | DRG 287 ==
LOC: 2NENU → SUATTDRO 01-21 01:54
PROVIDERS: ADMIT Internal Medicine; ATTEND Internal Medicine

== ENCOUNTER 2019-05-19 12:17 | Observation (INO) ==
[2019-05-19 13:24] LABS: Basophils # 0.1 K/mcL (0.0-0.2); Basophils % 0.7 %; Eosinophils # 0.8 K/mcL (0.0-0.6); Hematocrit 45.8 % (37.5-50.1); Immature Granulocytes % 0.3 % (0-4); Lymphocytes # 2.4 K/mcL (0.6-4.6); Lymphocytes % 31.6 %; Mean Corpuscular HGB Conc 34.9 g/dL (31.6-35.5); Mean Corpuscular Hemoglobin 31.4 pg (28.0-33.3); Mean Platelet Volume 10.1 fL (9.4-12.4); Monocytes # 0.8 K/mcL (0.0-1.3); Neutrophils # 3.4 K/mcL (1.6-8.9); Platelet Count 244 K/mcL (140-400); Red Blood Count 5.09 M/mcL (4.19-5.50); Red Cell Distribution Width 12.1 % (11.5-14.5); Segmented Neutrophils % 45.4 %; White Blood Count 7.5 K/mcL (4.3-11.1)
[2019-05-19 13:55] LABS: Alanine Aminotransferase 18 Units/L (7-52); Albumin 4.6 g/dL (3.5-5.7); Albumin/Globulin Ratio 1.9 (1.1-2.2); Alkaline Phosphatase 58 Units/L (34-104); Aspartate Amino Transferase 21 Units/L (13-39); BUN/Creatinine Ratio 17 (6-26); Bilirubin,Total 0.9 mg/dL (0.3-1.0); Blood Urea Nitrogen 17 mg/dL (8-23); Calcium 9.7 mg/dL (8.6-10.3); Carbon Dioxide 28 mEq/L (23-29); Chloride 102 mEq/L (98-107); Creatine Kinase 151 Units/L (30-223); Globulin 2.4 g/dL (2.4-3.5); Glucose 92 mg/dL (70-105); Osmolality,Calculated 289 (280-300); Potassium 3.3 mEq/L (3.5-5.1); Sodium 139 mEq/L (136-145); Troponin I 0.05 ng/mL (< 0.04); eGFR For African Americans > 60 (> 60); eGFR For Non-African Americans > 60 (> 60)
[2019-05-19] MEDS ORDERED: Naloxone 0.4 MG/ML INJ IVP PRN ×2 (16:27→16:29)
[2019-05-19] MEDS ORDERED: Ondansetron 4 MG/2 ML VIAL IVP PRN (16:29)
[2019-05-19] MEDS ORDERED: Albuterol 2.5 MG/3 ML NEBULIZER IH PRN (16:34)
[2019-05-19] MEDS ORDERED: Nitroglycerin 0.4 MG TAB.SUBL SL PRN (16:48)
[2019-05-19 17:01] LABS: Magnesium 2.4 mg/dL (1.6-2.6)
[2019-05-19] MEDS: Venlafaxine XR (24 HR) 75 MG CAP.ER.24H PO SCH (20:56)
[2019-05-19] MEDS: Ipratropium/Albuterol Neb 3 ML IH PRN (21:44)
[2019-05-20 02:35] LABS: Alanine Aminotransferase 14 Units/L (7-52); Albumin 3.9 g/dL (3.5-5.7); Alkaline Phosphatase 49 Units/L (34-104); Aspartate Amino Transferase 18 Units/L (13-39); BUN/Creatinine Ratio 21 (6-26); Bilirubin,Total 0.4 mg/dL (0.3-1.0); Blood Urea Nitrogen 21 mg/dL (8-23); Calcium 9.1 mg/dL (8.6-10.3); Carbon Dioxide 29 mEq/L (23-29); Chloride 103 mEq/L (98-107); Chol/HDL Ratio 2.9 (0-4.9); Cholesterol 135 mg/dL (< 200); Glucose 105 mg/dL (70-105); HDL Cholesterol 47 mg/dL (40-59); LDL Cholesterol,Calculated 73 mg/dL (0-99); Osmolality,Calculated 293 (280-300); Potassium 2.9 mEq/L (3.5-5.1); Sodium 140 mEq/L (136-145); Total Protein 5.9 g/dL (6.4-8.9); Triglycerides 77 mg/dL (< 150); eGFR For African Americans > 60 (> 60); eGFR For Non-African Americans > 60 (> 60)
[2019-05-20] MEDS ORDERED: amLODIPine 5 MG TABLET PO SCH (09:00)
[2019-05-20] MEDS ORDERED: [UNRECOGNIZED DRUG - OTHER] PO SCH (09:00)
[2019-05-20] MEDS ORDERED: Lisinopril 20 MG TABLET PO SCH (09:00)
[2019-05-20] MEDS ORDERED: Venlafaxine XR (24 HR) 75 MG CAP.ER.24H PO SCH (09:00)
[2019-05-20] MEDS ORDERED: EZETIMIBE PO SCH (09:00)
[2019-05-20] MEDS ORDERED: SIMVASTATIN PO SCH (09:00)
[2019-05-20] MEDS ORDERED: Aspirin 81 MG TAB.CHEW PO SCH (09:00)
[2019-05-20] MEDS: Ipratropium/Albuterol Neb 3 ML IH PRN (10:59)
[2019-05-20 19:21] VITALS: BP 151/84
[2019-05-20] MEDS: Venlafaxine XR (24 HR) 75 MG CAP.ER.24H PO SCH (20:18)
== END 2019-05-20 23:33 ==
LOC: EMEROOARM 12:17 → 3BNU 12:17
PROVIDERS: ADMIT Internal Medicine; ATTEND Internal Medicine